=== PATIENT | male | born 1955 | race American Indian/Alaskan Native ===

== ENCOUNTER 2020-01-18 10:46 | Outpatient (CLI) | payer MEDICARE | END 2020-01-18 10:47 | disposition home or self-care (01) | LOC: LAB 10:46 | PROVIDERS: ATTEND Psychiatry & Neurology Psychiatry | DX: F31.60 Bipolar disorder, current episode mixed, unspecified (principal); Z11.59 Encounter for screening for other viral diseases | CPT/HCPCS: 36415; 86592 ==

== ENCOUNTER 2020-05-12 15:31 | Emergency (ER) | payer MEDICARE ==
--- NOTE | 2020-05-12 15:33 | Emergency Department Report ---
Blank Doc - Documentation Documentation: 65-year-old male that presents with dizziness, chest pains, and SOB. Stated has not been taking medications for months. This initial assessment/diagnostic orders/clinical plan/treatment(s) is/are subject to change based on patient's health status, clinical progression and re- assessment by fellow clinical providers in the ED. Further treatment and workup at subsequent clinical providers discretion. Patient/guardians urged not to elope from the ED as their condition may be serious if not clinically assessed and managed. Initial orders include: 1- Patient sent to MAIN ED for further evaluation and treatment 2- cardiac workup
--- NOTE | 2020-05-12 15:57 | XRay Report ---
CHEST 2 VIEWS INDICATION / CLINICAL INFORMATION: Chest Pain. FINDINGS: SUPPORT DEVICES: None. HEART / MEDIASTINUM: No significant abnormality. LUNGS / PLEURA: No significant pulmonary or pleural abnormality. No pneumothorax. ADDITIONAL FINDINGS: Symmetric circular densities project over the lower lung zones bilaterally may r epresent nipple shadow but is ultimately nonspecific. Of note these focal densities were not identifi ed on the lateral view. IMPRESSION: 1. No acute findings. Signer Name: Siddharth Rodríguez MD Signed: 05/12/2020 3:52 PM Workstation Name: [id number]
[2020-05-12 16:12] LABS: Bilirubin,Urine NEG (Negative); Blood,Urine NEG (Negative); Color,Urine Yellow (Yellow); Mucus,Urine 1+ /HPF
[2020-05-12 16:15] LABS: Basophils % (Auto) 0.4 % (0.0-1.8); Eosinophils # (Auto) 0.1 K/mm3 (0.0-0.4); Eosinophils % (Auto) 0.7 % (0.0-4.3); Hematocrit 49.6 % (35.5-45.6); Hemoglobin 16.6 gm/dl (11.8-15.2); Lymphocytes # (Auto) 2.7 K/mm3 (1.2-5.4); Mean Corpuscular HGB Conc 34 % (32-34); Mean Corpuscular Volume 91 fl (84-94); Monocytes # (Auto) 0.8 K/mm3 (0.0-0.8); Monocytes % (Auto) 7.7 % (0.0-7.3); Platelet Count 193 K/mm3 (140-440); Red Blood Count 5.46 M/mm3 (3.65-5.03); Red Cell Distribution Width 14.9 % (13.2-15.2)
[2020-05-12 16:25] LABS: INR 0.9 (0.87-1.13)
[2020-05-12 16:26] LABS: Alanine Aminotransferase 17 units/L (7-56); Albumin 4.5 g/dL (3.9-5); BUN/Creatinine Ratio 11; Blood Urea Nitrogen 12 mg/dL (9-20); Calcium 9.8 mg/dL (8.4-10.2); Hemolysis Index 8; Partial Thromboplastin Time 25.2 Sec. (24.2-36.6)
[2020-05-12] MEDS ORDERED: METOPROLOL TARTRATE 5 MG/5 ML INJ IV ONE (23:17)
--- NOTE | 2020-05-12 23:17 | Emergency Department Report ---
ED General Adult HPI - General Chief complaint: Dizziness Stated complaint: DIZZY/BODY ACHE Time Seen by Provider: 05/12/20 15:32 Source: patient Mode of arrival: Ambulatory Limitations: No Limitations - History of Present Illness Initial comments: 65-year-old male presents to ED for medication refill. Patient states he has been out of his medications for approximately 1 month. He states for the last 3 weeks he has been having episodes of dizziness, chest pain, and urinary problems because he is out of his Flomax. Patient denies any chest pain at this time. Patient states he takes Flomax, lisinopril, metoprolol, metformin. -: week(s) (3) Consistency: intermittent Improves with: none Worsens with: none Associated Symptoms: chest pain. denies: cough, diaphoresis, fever/chills, headaches, nausea/vomiting, shortness of breath - Related Data Home Medications Medication Instructions Recorded Confirmed Last Taken QUEtiapine [SEROquel] 300 mg PO QHS 01/27/16 06/23/18 01/26/16 Clopidogrel Bisulfate [Plavix] 75 mg PO QDAY 06/23/18 06/23/18 Unknown Previous Rx's Medication Instructions Recorded Last Taken Type Oseltamivir [Tamiflu] 75 mg PO BID #8 capsule 06/24/18 Unknown Rx oxyCODONE /ACETAMINOPHEN [Percocet 1 tab PO BID PRN #6 tablet 06/24/18 Unknown Rx 5/325 mg] Cyclobenzaprine [Flexeril] 10 mg PO BID PRN #12 tablet 07/21/18 Unknown Rx Naproxen [EC-Naprosyn] 500 mg PO BID PRN #15 tablet. 07/21/18 Unknown Rx Clopidogrel [Plavix] 75 mg PO QDAY #30 tablet 05/12/20 Unknown Rx Metoprolol [Lopressor TAB] 25 mg PO BID #60 05/12/20 Unknown Rx Tamsulosin [Flomax] 0.4 mg PO QDAY #30 cap 05/12/20 Unknown Rx lisinopriL [Zestril TAB] 20 mg PO QDAY #30 tablet 05/12/20 Unknown Rx metFORMIN [Glucophage] 500 mg PO BID #60 05/12/20 Unknown Rx Allergies Allergy/AdvReac Type Severity Reaction Status Date / Time No Known Allergies Allergy Verified 10/05/16 11:43 ED Review of Systems ROS: Stated complaint: DIZZY/BODY ACHE Other details as noted in HPI Comment: All other systems reviewed and negative Constitutional: denies: chills, fever Respiratory: denies: cough, shortness of breath Cardiovascular: chest pain. denies: palpitations Gastrointestinal: denies: abdominal pain, nausea, vomiting, diarrhea Genitourinary: frequency Neurological: denies: headache, weakness, numbness ED Past Medical Hx - Past Medical History Previous Medical History?: Yes Hx Hypertension: Yes Hx Heart Attack/AMI: Yes Hx Diabetes: Yes Additional medical history: CAD. HIGH CHOLESTEROL. NEUROPATHY - Surgical History Past Surgical History?: Yes Hx Coronary Stent: Yes Additional Surgical History: LEFT LOWER LEG - Social History Smoking Status: Former Smoker Substance Use Type: Alcohol, Prescribed - Medications Home Medications: Home Medications Medication Instructions Recorded Confirmed Last Taken Type QUEtiapine [SEROquel] 300 mg PO QHS 01/27/16 06/23/18 01/26/16 History Clopidogrel Bisulfate [Plavix] 75 mg PO QDAY 06/23/18 06/23/18 Unknown History Oseltamivir [Tamiflu] 75 mg PO BID #8 capsule 06/24/18 Unknown Rx oxyCODONE /ACETAMINOPHEN [Percocet 1 tab PO BID PRN #6 tablet 06/24/18 Unknown Rx 5/325 mg] Cyclobenzaprine [Flexeril] 10 mg PO BID PRN #12 tablet 07/21/18 Unknown Rx Naproxen [EC-Naprosyn] 500 mg PO BID PRN #15 tablet.dr 07/21/18 Unknown Rx Clopidogrel [Plavix] 75 mg PO QDAY #30 tablet 05/12/20 Unknown Rx Metoprolol [Lopressor TAB] 25 mg PO BID #60 05/12/20 Unknown Rx Tamsulosin [Flomax] 0.4 mg PO QDAY #30 cap 05/12/20 Unknown Rx lisinopriL [Zestril TAB] 20 mg PO QDAY #30 tablet 05/12/20 Unknown Rx metFORMIN [Glucophage] 500 mg PO BID #60 05/12/20 Unknown Rx ED Physical Exam - General Limitations: No Limitations General appearance: alert, in no apparent distress - Head Head exam: Present: atraumatic, normocephalic - Eye Eye exam: Present: normal appearance, EOMI - ENT ENT exam: Present: mucous membranes moist - Neck Neck exam: Present: normal inspection - Respiratory Respiratory exam: Present: normal lung sounds bilaterally. Absent: respiratory distress - Cardiovascular Cardiovascular Exam: Present: normal rhythm, tachycardia - GI/Abdominal GI/Abdominal exam: Present: soft. Absent: distended, tenderness - Extremities Exam Extremities exam: Present: normal inspection - Neurological Exam Neurological exam: Present: alert, oriented X3 - Psychiatric Psychiatric exam: Present: normal affect, normal mood - Skin Skin exam: Present: warm, dry, intact, normal color ED Course Vital Signs 05/12/20 05/12/20 05/12/20 15:35 22:55 23:01 Temperature 98.7 F Pulse Rate 127 H 113 H 109 H Respiratory 18 19 11 L Rate Blood Pressure 147/99 166/100 Blood Pressure [Left] O2 Sat by Pulse 98 98 Oximetry 05/12/20 05/12/20 05/12/20 23:28 23:31 23:32 Temperature Pulse Rate 106 H 105 H 105 H Respiratory 18 12 Rate Blood Pressure 168/98 168/98 Blood Pressure 168/98 [Left] O2 Sat by Pulse 99 99 Oximetry 05/12/20 23:44 Temperature Pulse Rate 89 Respiratory 18 Rate Blood Pressure Blood Pressure 164/94 [Left] O2 Sat by Pulse 98 Oximetry ED Medical Decision Making - Lab Data Result diagrams: 05/12/20 15:48 05/12/20 15:48 - EKG Data -: EKG Interpreted by Ca EKG shows normal: sinus rhythm Rate: tachycardia (rate 115) - EKG Data Interpretation: no acute changes - Radiology Data Radiology results: report reviewed, image reviewed - Medical Decision Making 65-year-old female presents to ED for medication refill. He also reported having some chest pain, but none currently. EKG unremarkable, troponin negative x2. Remainder of labs are normal. Patient advised to follow-up at [facility] which is where he usually goes. Return precautions given. Was given. - Differential Diagnosis Med refill, ACS Critical care attestation.: If time is entered above; I have spent that time in minutes in the direct care of this critically ill patient, excluding procedure time. ED Disposition Clinical Impression: Chest pain, Medication refill, Uncontrolled hypertension Disposition: TO HOME OR SELFCARE Is pt being admited?: No Condition: Stable Instructions: Chest Pain (ED), Hypertension (ED) Prescriptions: Tamsulosin [Flomax] 0.4 mg PO QDAY #30 cap metFORMIN [Glucophage] 500 mg PO BID #60 Metoprolol [Lopressor TAB] 25 mg PO BID #60 Clopidogrel [Plavix] 75 mg PO QDAY #30 tablet lisinopriL [Zestril TAB] 20 mg PO QDAY #30 tablet Referrals: PRIMARY CARE, [Primary Care Provider] - 3-5 Days Time of Disposition: 23:52
[2020-05-12 23:45] VITALS: BP 164/94
== END 2020-05-13 00:08 | disposition home or self-care (01) ==
LOC: ED 15:31
DX: R07.89 Other chest pain (principal); I10 Essential (primary) hypertension; Z76.0 Encounter for issue of repeat prescription; I25.2 Old myocardial infarction; E11.9 Type 2 diabetes mellitus without complications; Z98.890 Other specified postprocedural states; Z87.891 Personal history of nicotine dependence; Z79.84 Long term (current) use of oral hypoglycemic drugs; Z79.899 Other long term (current) drug therapy
CPT/HCPCS: 36415; 71046; 80053; 81001; 82805; 84484; 85025; 85610; 85730; 93005; 96374

== ENCOUNTER 2021-04-14 17:22 | Emergency (ER) | payer MEDICARE ==
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
[2021-04-14 21:36] LABS: Basophils # (Auto) 0.1 K/mm3 (0.0-0.1); Basophils % (Auto) 0.8 % (0.0-1.8); Eosinophils % (Auto) 0.3 % (0.0-4.3); Hematocrit 44.1 % (35.5-45.6); Hemoglobin 14.5 gm/dl (11.8-15.2); Lymphocytes # (Auto) 1.9 K/mm3 (1.2-5.4); Lymphocytes % (Auto) 14.8 % (13.4-35.0); Mean Corpuscular HGB Conc 33 % (32-34); Mean Corpuscular Volume 91 fl (84-94); Monocytes % (Auto) 7.8 % (0.0-7.3); Platelet Count 197 K/mm3 (140-440); Red Blood Count 4.83 M/mm3 (3.65-5.03); Red Cell Distribution Width 15.7 % (13.2-15.2)
[2021-04-14 21:40] LABS: BUN/Creatinine Ratio 26; Blood Urea Nitrogen 21 mg/dL (9-20); Calcium 9.6 mg/dL (8.4-10.2); Hemolysis Index 9
[2021-04-14 21:44] LABS: Alanine Aminotransferase 22 units/L (7-56); Albumin 5.1 g/dL (3.9-5)
[2021-04-14 21:47] LABS: Bilirubin,Direct < 0.2 mg/dL (0-0.2)
[2021-04-14] MEDS ORDERED: SODIUM CHLORIDE 0.9% 1000 ML 1,000 ML IV ONE (22:38)
[2021-04-15] MEDS ORDERED: SODIUM CHLORIDE 0.9% 1000 ML 1,000 ML IV ONE (00:16)
[2021-04-15 04:43] VITALS: BP 148/90
== END 2021-04-15 02:40 | disposition home or self-care (01) ==
LOC: ED 17:22
DX: M62.82 Rhabdomyolysis (principal); E86.0 Dehydration; I10 Essential (primary) hypertension; E11.8 Type 2 diabetes mellitus with unspecified complications; I25.10 Atherosclerotic heart disease of native coronary artery without angina pectoris; E78.00 Pure hypercholesterolemia, unspecified; G62.9 Polyneuropathy, unspecified; Z98.890 Other specified postprocedural states; Z87.891 Personal history of nicotine dependence
CPT/HCPCS: 36415; 80048; 80076; 82550; 85025; 96360; 96361; 99283; J7030; 80320; G0480